=== PATIENT | male | born 1955 | race African-American/Black ===

== ENCOUNTER 2017-03-23 01:35 | Emergency (ER) | payer OTHER ==
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
== END 2017-03-23 05:45 | disposition home or self-care (01) ==
LOC: CED 01:35
DX: S00.81XA Abrasion of other part of head, initial encounter (principal); I10 Essential (primary) hypertension; F20.9 Schizophrenia, unspecified; F17.210 Nicotine dependence, cigarettes, uncomplicated; Y04.0XXA Assault by unarmed brawl or fight, initial encounter; Y92.009 Unspecified place in unspecified non-institutional (private) residence as the place of occurrence of the external cause
CPT/HCPCS: 70360; 70450; 99284